=== PATIENT | male | born 1980 | race Hispanic/Latino ===

== ENCOUNTER 2016-04-20 09:42 | Day surgery (SDC) | payer OTHER ==
[~2016-04-20] VITALS: Ht 165.1 cm; Wt 81.8 kg
[~2016-04-20 09:42] MED LIST: 0.9% Sodium Chloride 1,000 ML IV SCH; BACITRACIN TOPICAL; HYDR-4003 PO; HYDR-4150 PO; IBUP200C PO; NEOMYCIN TOPICAL; OMEP20CA11 PO; Sodium Chloride LOK Flush 10 mL Syringe IV PRN; TRET1COM3 TP; [UNRECOGNIZED DRUG - OTHER] TOPICAL; fentaNYL-PF 50 mCg/mL 2 mL Inj IVPUSH PRN
[2016-04-20 10:12] VITALS: BP 117/74; PULSE 69; RESP 15; O2SAT 96
[2016-04-20 10:56] VITALS: BP 110/58; PULSE 85; RESP 14; O2SAT 99
[2016-04-20 11:07] VITALS: BP 97/53; PULSE 77; RESP 14; O2SAT 96
[2016-04-20 11:10] VITALS: BP 101/58; PULSE 74; RESP 14; O2SAT 98
[2016-04-20 11:20] VITALS: BP 127/69; PULSE 74; RESP 14; O2SAT 98
--- NOTE | 2016-04-20 12:07 | ENDO ---
[address] [address] ENDOSCOPY PROCEDURE PATIENT: TAMRA HERNANDEZ : 1980 MR#: [id number] ADMIT: 04/20/2016 JOB ID: [id number] DATE OF SERVICE: 04/20/2016 TYPE OF OPERATION: 1. Esophagogastroduodenoscopy with biopsy. 2. Colonoscopy. PREOPERATIVE DIAGNOSIS(ES): 1. Gastroesophageal reflux disease. 2. Rectal bleeding. POSTOPERATIVE DIAGNOSIS(ES): 1. Moderate distal esophagitis. 2. Multiple ulcers seen in distal esophagus, status post biopsy. 3. Normal colonoscopy. ANESTHESIA: Fentanyl 150 mcg, Versed 7 mg IV administered. COMPLICATIONS: None. BLOOD LOSS: Minimal. DESCRIPTION OF PROCEDURE: After risks and benefits explained to the patient, informed consent was obtained. After anesthesia administered, the upper endoscope was then inserted in the mouth, intubating into esophagus, stomach, second portion of duodenum, and mucosa carefully examined. After procedure was done, the scope withdrawn and procedure terminated. Colonoscope was then inserted from rectum to cecum. Mucosa carefully examined. Prep of the patient was excellent. After procedure was done, the scope withdrawn and procedure terminated. FINDINGS: Upon inspection of the esophagus, there was moderate distal esophagitis, along with multiple ulcers, clean based and nonbleeding, with largest size approximately 1 cm, status post biopsy. Z-line located 35 cm from incisors. Upon entering the stomach, the stomach was normal without masses, ulcers, or lesions. Retroflexion was normal. Duodenal bulb, first and second portions normal. Biopsies taken from antrum and body of stomach. Upon inspection of the anus, no masses, hemorrhoids, ulcers, or fissures that were seen. Throughout the entire examination, there were no polyps, masses, or lesions. Retroflexion was normal. IMPRESSION: 1. Normal colonoscopy. 2. Moderate distal esophagitis, along with multiple distal esophageal ulcers, clean based, nonbleeding, with largest size 1 cm in diameter. RECOMMENDATIONS: 1. Await pathology results. 2. Start Carafate 1 g by mouth 4 times a day. 3. Omeprazole 40 mg by mouth twice a day. 4. Follow up in GI clinic.
--- NOTE | 2016-04-23 13:51 | PATH ---
SURGICAL PATHOLOGY Attending Physician:Mauricio Whitaker MD CASE STATUS: Signed Out PATIENT NAME: TAMRA HERNANDEZ PID: [id number] : 1980 DATE COLLECTED:04/20/2016 17:45 SPECIMEN: 1: Stomach, Antrum, Biopsy 2: Gastric, Biopsy 3: Esophagus, Biopsy CLINICAL HISTORY: 1). ANTRUM BX 2). GASTRIC BODY BX 3). DISTAL ESOPHAGUS BX FINAL DIAGNOSIS: 1.ANTRUM BIOPSY: MINIMAL CHRONIC GASTRITIS INVOLVING ANTRAL MUCOSA. Negative for evidence of Helicobacter. Negative for intestinal metaplasia. Negative for dysplasia and malignancy. 2.GASTRIC BODY BIOPSY: MILD CHRONIC GASTRITIS INVOLVING FUNDIC MUCOSA. Negative for evidence of Helicobacter. Negative for intestinal metaplasia. Negative for dysplasia and malignancy. 3.DISTAL ESOPHAGUS BIOPSY: SQUAMOUS EPITHELIUM AND GASTRIC CARDIA-TYPE EPITHELIUM WITH CHRONIC ACTIVE INFLAMMATION, REACTIVE EPITHELIAL CHANGES, AND SCATTERED EOSINOPHILS PRESENT WITHIN THE SQUAMOUS EPITHELIUM (CHANGES CONSISTENT WITH THOSE OF CHRONIC REFLUX). Negative for dysplasia and malignancy. ICD10 code K21.0 GROSS DESCRIPTION: Received are three formalin-filled containers, each labeled with the patient' s name. 1. Received in formalin, labeled with the patient' s name and "antrum biopsy", are two fragments of hale, soft tissue ranging in size from 0.2 x 0.1 x 0.1 cm to 0.2 x 0.2 x 0.2 cm. All fragments are totally submitted in cassette 1A. 2. Received in formalin, labeled with the patient' s name and "gastric body biopsy", are four fragments of hale, soft tissue ranging in size from 0.1 x 0.1 x 0.1 cm to 0.2 x 0.1 x 0.1 cm. All fragments are totally submitted in cassette 2A. 3. Received in formalin, labeled with the patient' s name and "distal esophagus biopsy", are two fragments of hale, soft tissue ranging in size from 0.1 x 0.1 x 0.1 cm to 0.2 x 0.1 x 0.1 cm. The fragments are totally submitted in cassette 3A. ([id number]) MICRO DESCRIPTION: See diagnosis. ICD-9 CODES: CPT CODES: 1: 72190 2: 85033 3: 76630 Electronically Signed Out Jone Gonzalez MD [facility] [address], [place] [address] Technical component performed at [facility], [address], [place], [address]
== END 2016-04-20 23:59 | disposition home or self-care (01) ==
LOC: END 09:42
PROVIDERS: ATTEND Internal Medicine Gastroenterology
DX: K62.5 Hemorrhage of anus and rectum (principal); K29.50 Unspecified chronic gastritis without bleeding; K21.9 Gastro-esophageal reflux disease without esophagitis; K22.10 Ulcer of esophagus without bleeding; K20.8 Other esophagitis; F41.0 Panic disorder [episodic paroxysmal anxiety]
CPT/HCPCS: 43239; 45378; 99153; G0500; J2250; J3010; J7030